=== PATIENT | female | born 1990 | race Caucasian/White ===

== ENCOUNTER 2019-03-28 14:04 | Emergency (ER) | payer OTHER, SELFPAY ==
[2019-03-28 14:24] LABS: Clarity Cloudy (Clear)
[2019-03-28 14:27] LABS: Pregnancy Test - Urine (BHCG) Negative (Negative); Pregu Control Background? CLEAR/WHITE (CLR/WHITE); Pregu Control Bar Appear? YES (CONTROL BAR); Specific Gravity 1.013 (1.002-1.036)
[2019-03-28 14:30] LABS: WBC/HPF Greater Than 50 HPF (0-3)
[2019-03-28 14:31] LABS: Bacteria/HPF 1+ HPF (None Seen); Oval Fat Bodies/HPF 1+ HPF (None Seen); Squamous Epithelial 0-3 HPF (0-3)
== END 2019-03-28 14:53 | disposition home or self-care (01) ==
LOC: SCSER 14:04
DX: N39.0 Urinary tract infection, site not specified (principal); F41.9 Anxiety disorder, unspecified
CPT/HCPCS: 81003; 81015; 81025; 87086; 99283